=== PATIENT | male | born 2000 | race Two or more races ===

== ENCOUNTER 2025-09-08 09:40 | Emergency (ER) | payer MEDICAID, SELFPAY ==
[2025-09-08 09:41] VITALS: BMI 29.8
[2025-09-08 09:51] VITALS: BP 122/79; PULSE 64; RESP 18; TEMP 36.4; O2SAT 99
--- NOTE | 2025-09-08 09:57 | XR_ITS ---
Examination: CT brain head without contrast. 2-D sagittal coronal reconstructions Date and time of exam: September 08, 2025, 1059 hours INDICATIONS: Blurred vision dizziness episodes onset today CTDI: vol (mGy): 48.6 DLP: (mGycm): 1002 Technique: Multiple CT axial sections of the brain have been obtained, 5 mm slice thickness. Contrast has not been administered. 2-D sagittal, coronal reconstructions have been obtained Low dose protocols were performed. One or more of the following dose reduction techniques were used; automated exposure control, adjustment of the mA and/or KV according to patient size, use of iterative reconstruction technique. Findings: No significant ventricular enlargement. Intra-axial or extra-axial hemorrhage density is not seen. No mass effect or midline shift Basal cisterns are not remarkable. Fourth ventricle is midline. Cranial vault intact. Impression: Negative for acute hemorrhage, mass effect or midline shift As clinically warranted, brain MRI follow-up would best assess for demyelinating disease, acute ischemic change
--- NOTE | 2025-09-08 09:58 | PD.EDPSYCH ---
ED Psych RME/HPI General Chief Complaint: Syncope / Near Syncope Stated Complaint: SYNCOPAL EPISODE Time Seen by Provider: 09/08/25 09:47 Source: patient Arrival date/time: 09/08/25 09:40 25-year-old male with no established psychiatric history presents to the emergency room with a chief complaint stating that when he drinks a lot of sugar he rushes to his head causing him to have near syncopal episodes. Patient is also states he sees a lot of fiber and colors and shadows. Patient denies any homicidal or suicidal ideation Mode of arrival: ambulatory Limitations: no limitations Related Data Allergies Allergy/AdvReac Type Severity Reaction Status Date / Time No Known Allergies Allergy Verified 09/08/25 09:44 Review of Systems Review of Systems Systems Reviewed: All systems reviewed, normal except as documented Constitutional Constitutional: Reports system reviewed and no additional complaints, except as documented, Denies fatigue, Denies fever(s), Denies headache(s) and Denies weakness Eyes Eyes: Reports system reviewed and no additional complaints, except as documented, Denies blurry vision and Denies change in vision ENT Ears, Nose, Mouth, and Throat: Reports system reviewed and no additional complaints, except as documented, Denies otalgia, Denies headache(s), Denies nasal congestion, Denies throat swelling and Denies vertigo Cardiovascular Cardiovascular: Reports system reviewed and no additional complaints, except as documented, Denies chest pain, Denies dyspnea and Denies dyspnea on exertion Respiratory Respiratory: Reports system reviewed and no additional complaints, except as documented, Denies chest congestion, Denies cough, Denies dyspnea, Denies dyspnea on exertion and Denies wheezing Gastrointestinal Gastrointestinal: Reports system reviewed and no additional complaints, except as documented, Denies abdominal pain, Denies cramping, Denies nausea and Denies vomiting Genitourinary Genitourinary: Reports system reviewed and no additional complaints, except as documented, Denies change in libido, Denies dysuria and Denies hematuria Musculoskeletal Musculoskeletal: Reports system reviewed and no additional complaints, except as documented and Denies back pain Integumentary/Breasts Skin/Breast: Reports system reviewed and no additional complaints, except as documented and Denies wounds Neurologic Neurologic: Reports system reviewed and no additional complaints, except as documented, Denies behavioral changes, Denies confusion, Denies headache(s), Denies lack of coordination, Denies vertigo and Denies weakness Psychiatric Psychiatric: Reports system reviewed and no additional complaints, except as documented, Denies abnormal sleep pattern, Denies anhedonia, Denies anxiety, Denies auditory hallucinations, Denies behavioral changes, Denies change in appetite, Denies change in libido, Denies confusion, Denies depression, Reports difficulty concentrating, Reports hallucinations, Denies homicidal ideation, Denies hopelessness, Denies irritability, Reports mood swings, Denies panic attacks, Denies paranoia, Denies suicidal ideation, Denies tactile hallucinations and Reports visual hallucinations Endocrine Endocrine: Reports system reviewed and no additional complaints, except as documented, Denies change in libido and Denies fatigue Hematologic/Lymphatic Hematologic/Lymphatic: Reports system reviewed and no additional complaints, except as documented and Denies lymphadenopathy Allergic/Immunologic Allergic/Immunologic: Reports system reviewed and no additional complaints, except as documented, Denies throat swelling, Denies urticaria and Denies wheezing ED Exam General Limitations: Present no limitations General appearance: Present alert and in no apparent distress Head Head exam: Present atraumatic Eye Eye exam: Present normal appearance, PERRL and EOMI ENT ENT exam: Present normal exam, normal oropharynx and mucous membranes moist Neck Neck exam: Present normal inspection, full ROM and trachea midline Chest Chest inspection: Present normal inspection and symmetric chest wall rise Respiratory Respiratory exam: Present normal lung sounds bilaterally Cardiovascular Cardiovascular exam: Present regular rate, normal rhythm and normal heart sounds Abdominal Exam Abdominal exam: Present soft and normal bowel sounds Extremities Exam Extremities exam: Present normal inspection and full ROM Back Exam Back exam: Present normal inspection and full ROM Neurological Exam Neurological exam: Present alert, oriented X3 and CN II-XII intact Psychiatric Psychiatric exam: Present normal affect and normal mood; Absent depressed, agitated, anxious, manic, homicidal ideation or suicidal ideation Expanded Psychiatric Exam Expanded psych exam: Present poor eye contact and visual hallucinations; Absent pressured speech, responds to int stimuli, psychomotor agitation, delusional, paranoid, catatonic, mute, perseverating, euphoric, restlessness, flight of ideas, loose associations, uncooperative, refuses to answer, auditory hallucinations or confabulating Skin Skin exam: Present warm, dry, intact and normal color Course Quality Measures none Orders Category Date Time Status CT head/brain wo con Stat Exams 09/08/25 09:57 Completed CBC Stat Lab 09/08/25 10:10 Completed CMP [Comprehensive Metabolic Panel] Stat Lab 09/08/25 10:10 Completed Drug Screen,Urine Stat Lab 09/08/25 10:00 Completed Free T4 (Free Thyroxine) Stat Lab 09/08/25 10:10 Completed TSH [Thyroid Stimulating Hormone] Stat Lab 09/08/25 10:10 Completed UA, C/S IF [Urinalysis, C/S if Indicated] Stat Lab 09/08/25 10:00 Completed Vital Signs Vital signs: Vital Signs Temperature 97.5 F 09/08/25 09:51 Pulse Rate 64 09/08/25 09:51 Respiratory Rate 18 09/08/25 09:51 Blood Pressure 122/79 09/08/25 09:51 Pulse Oximetry (%) 99 09/08/25 09:51 Oxygen Delivery Method Room Air 09/08/25 09:51 O2 saturation 99% within normal limits Psych MDM Narrative MDM Narrative:: 25-year-old male with no established psychiatric history presents to the emergency room with a chief complaint stating that when he drinks a lot of sugar he rushes to his head causing him to have near syncopal episodes. Patient is also states he sees a lot of fiber and colors and shadows. Patient denies any homicidal or suicidal ideation. Patient is hemodynamically stable and in no apparent distress Physical examination shows normal neurological exam. The patient is a GCS of 15 he is alert and oriented x 3. Patient states he has no psychiatric history or any history of any schizophrenia. Patient states he is seeing shadows as well as bright lights at times. Patient also states that when he drinks a lot of sugar it goes up to his head causing him to feel like he is going to pass out. Patient has never been to the emergency room. He is nontoxic-appearing. Patient denies any suicidal or homicidal ideation. Patient states these hallucinations that he is seeing are not speaking to him. A CT of his head and brain was negative for any acute findings. CBC CMP urinalysis and urine drug screen were within all normal limits. I spoke to our social services director Veronica who evaluated the patient and the recommendations were as as she needs a psychiatric evaluation. She gave him the resources and got him an appointment scheduled so he could see a psychiatrist for further evaluation and management as well as if he needs to start medication. Patient was discharged and educated to follow-up with primary care provider in the next 24 to 48 hours and return to the emergency room for any evidence of worsening signs or symptoms Patient data External records reviewed:: [facility] previous records Clinical information provided by:: patient Social determinants that could affect healthcare access:: none Patient has the following chronic illnesses:: No chronic illness How is presenting disease/condition affected by chronic disease/condition?: no chronic disease Evaluation data The following diagnostics were reviewed and interpreted by me:: lab results and radiology exam(s) Lab and/or radiology exams considered but not ordered:: Labs and radiology exams considered and ordered Interpretation Summary: CT head and brain-Findings: No significant ventricular enlargement. Intra-axial or extra-axial hemorrhage density is not seen. No mass effect or midline shift Basal cisterns are not remarkable. Fourth ventricle is midline. Cranial vault intact. Impression: Negative for acute hemorrhage, mass effect or midline shift As clinically warranted, brain MRI follow-up would best assess for demyelinating disease, acute ischemic change Medications / Prescriptions Medications or Prescriptions considered but not ordered:: No medication given Medication administrations:: No medication given Consultations Consultation(s) initiated? (list below): No Diagnosis Psych Differential Diagnosis: acute psychosis, chronic schizophrenia, bipolar disorder, drug-induced psychotic disorder, acute anxiety and other (Psychiatric care) Most likely diagnosis given after review of the tests above:: Psychiatric care Admission Indicated Admission indicated?: not indicated Admission Request Was there a request for admission?: No Disposition Plan Disposition Plan: Discharge Discharge Attestation Discharge Attestation: The patient and all family members were given an opportunity to ask questions and understood the discharge instructions. Discharge instructions specifically effects, indications for sooner follow up or return to the emergency department, and the expected course of current diagnosis. Patient condition: Stable Discharge Plan Plan Patient Disposition: HOME (Self Care) Discharge Disposition comment: Stable Prescriptions/Referrals Referrals: No Primary/Family,Physician [Primary Care Provider] - In 1 week Problem List Clinical Impression: Psychiatric care, Hallucinations, visual Patient/Caregiver Discharge Instructions Additional Instructions: Please follow-up with your primary care provider in the next [address] of your head and brain was negative for any acute findings. Your blood work urinalysis was all within normal limits. I spoke to our social services director who gave you resources for any psychiatric care you may need For any evidence of worsening signs or symptoms return to the emergency room immediately Print Language: Japanese Stand Alone Forms: [employer] Work/School Release, Patient Portal Info Letter PA/INDIAN BLANKET WEAVER Supervising Physician PA/INDIAN BLANKET WEAVER Supervising Physician: Dr. Cantu
[2025-09-08 10:17] LABS: Collection Type, Urine Clean Catch; RBC,Urine 0 /hpf (0-3)
[2025-09-08 10:21] LABS: Basophils # (Auto) 0.0 Thou/mm3 (0.0-0.2); Basophils % (Auto) 1 % (0-2.5); Eosinophils # (Auto) 0.1 Thou/mm3 (0.0-0.5); Eosinophils % (Auto) 3 % (0-10); Hematocrit 49.5 % (41.0-53.0); Hemoglobin 17.1 g/dL (13.5-16.0); Immature Granulocytes Auto 0.01 Thou/mm3 (0.00-0.00); Lymphocytes # (Auto) 1.7 Thou/mm3 (1.0-4.8); Lymphocytes % (Auto) 41 % (10-50); Mean Corpuscular HGB Conc 34.5 g/dl (31.0-37.0); Mean Corpuscular Hemoglobin 29.7 pg (25.0-35.0); Mean Corpuscular Volume 86 fL (80-100); Monocytes # (Auto) 0.3 Thou/mm3 (0.0-0.8); Monocytes % (Auto) 8 % (0-12); Neutrophils # (Auto) 2.0 Thou/mm3 (1.8-7.7); Neutrophils % (Auto) 48 % (37-80); Nucleated Red Blood Cell # 0.00 Thou/mm3 (0.00-0.00); Nucleated Red Blood Cell % 0 /100 WBC (0); Platelet Count 297 Thou/mm3 (140-440); RDW Standard Deviation 37.5 fL (35.1-43.9); Red Blood Count 5.75 Miln/mm3 (4.50-5.90); White Blood Count 4.3 Thou/mm3 (3.8-10.6)
[2025-09-08 10:38] LABS: Bilirubin,Urine Negative (Negative); Blood,Urine Negative (Negative); Clarity,Urine Clear (Clear/Hazy); Color,Urine Lt-Yellow (Lt Yel-Yel); Culture Indicated,Urine Not Indicated; Glucose, Urine Negative (Negative); Ketones,Urine Negative (Negative); Leukocyte Esterase,Urine Negative (Negative); Nitrite,Urine Negative (Negative); PH,Urine 6.5 (5.0-7.0); Protein,Urine Negative (Neg - Trace); Specific Gravity,Urine 1.018 (1.001-1.035); Squamous Epithelial Cell,Urine < 1 /hpf (0-5); Urobilinogen,Urine Negative mg/dL (0.0-1.0); WBC,Urine 1 /hpf (0-5)
[2025-09-08 10:41] LABS: Alanine Aminotransferase 30 U/L (10-49); Albumin, Serum 5.4 gm/dL (3.5-5.0); Albumin/Globulin Ratio 2.6 (1.2-2.2); Alkaline Phosphatase 102 U/L (46-116); Anion Gap 8 (7-16); Aspartate Amino Transferase 29 U/L (0-34); BUN/Creatinine Ratio 14 Ratio (12-20); Bilirubin,Total 1.2 mg/dL (0.3-1.2); Blood Urea Nitrogen 13 mg/dL (9-23); Calcium 10.1 mg/dL (8.3-10.6); Calcium (Corrected) 10.1 mg/dL (8.5-10.1); Carbon Dioxide 31.0 mMol/L (20.0-31.0); Chloride 102 mMol/L (98-107); Creatinine (Component) 0.9 mg/dL (0.6-1.3); Estimated Creatinine Clearance 140.3 mL/min (>60); Free T4 (Free Thyroxine) 1.45 ng/dL (0.89-1.76); Globulin 2.1 gm/dL (2.3-3.5); Glucose 99 mg/dL (74-106); Osmolality,Calculated 281 (275-295); Potassium 4.2 mMol/L (3.4-5.1); Sodium 141 mMol/L (136-145); Thyroid Stimulating Hormone 1.29 uIU/mL (0.55-4.78); Total Protein 7.5 gm/dL (5.7-8.2); eGFR > 60 See Note
[2025-09-08 10:49] LABS: Sperm,Urine Present
[2025-09-08 10:57] LABS: Amphetamine/Methamp Scrn,U Negative (Negative); Barbiturate Screen,Urine Negative (Negative); Benzodiazepines Screen,Urine Negative (Negative); Benzoylecgonine Screen, Ur Negative (Negative); Fentanyl Screen,Urine Negative (Negative); Opiate Screen,Urine Negative (Negative); THC Screen,Urine Negative (Negative)
--- NOTE | 2025-09-08 11:56 | PC.CC ---
1145-ASW met with pt as pt is requesting community resources to mental health providers. Since pt is from [place], ASW attempted to schedule an appointment to [facility] in [place] but the cashier receptionist stated they would call back. ASW will call back by the end of the day if the clinic has not returned the call to establish an appointment for the pt.
--- NOTE | 2025-09-09 09:34 | PC.CC ---
[id number] called [facility] in [place] as an attempt to schedule a MH appointment for this pt. However, per the editorial clerk, our ER provider would have needed to create a referral to MH services for this provider as his d/c plan. At this moment, pt would need to call [facility] himself and schedule an MH appointment for himself. ASW contacted pt and spoke with his mother and advised of the instruction from [facility]. The mother stated she understood and would take the pt to the clinic to schedule the appointment.
== END 2025-09-08 12:15 | disposition home or self-care (01) ==
PROVIDERS: Nurse Practitioner Family; Emergency Provider Emergency Medicine
DX: R44.1 Visual hallucinations (principal)
CPT/HCPCS: 36415; 70450; 80053; 80307; 81001; 84439; 84443; 85025; 99283

== ENCOUNTER 2025-09-08 12:36 | Emergency (ER) | payer MEDICAID, SELFPAY ==
[2025-09-08 12:36] VITALS: BMI 29.8
[2025-09-08 13:03] VITALS: BP 134/89; PULSE 60; RESP 16; TEMP 36.7; O2SAT 99
--- NOTE | 2025-09-08 13:05 | XR_ITS ---
Examination: CT abdomen and pelvis without contrast. Coronal 3-D reconstructions. Sagittal 2-D reconstructions. Date and time of exam: September 08, 2025: 1514 hours INDICATIONS: Generalized abdominal pain beginning 2 days ago CTDI: vol (mGy): 4 DLP: (mGycm): 221 Technique: Axial images of the abdomen have been obtained, 3 mm slice thickness Intravenous contrast material has not been administered. Low dose protocols were performed. One or more of the following dose reduction techniques were used; automated exposure control, adjustment of the mA and/or KV according to patient size, use of iterative reconstruction technique. Findings: No visualized liver or splenic lesion No gallstones No pancreatic or adrenal mass No renal or ureteral calculi, no hydronephrosis Aorta normal size No bowel obstruction Normal appendix No diverticulitis Normal prostate Normal urinary bladder The osseous structures are intact IMPRESSION: No renal or ureteral calculi, no hydronephrosis Normal appendix No bowel obstruction diverticulitis or free air
[2025-09-08 13:26] LABS: Collection Type, Urine Clean Catch; Squamous Epithelial Cell,Urine 0 /hpf (0-5)
[2025-09-08 13:40] LABS: Basophils # (Auto) 0.0 Thou/mm3 (0.0-0.2); Basophils % (Auto) 1 % (0-2.5); Eosinophils # (Auto) 0.1 Thou/mm3 (0.0-0.5); Eosinophils % (Auto) 1 % (0-10); Hematocrit 48.2 % (41.0-53.0); Hemoglobin 16.8 g/dL (13.5-16.0); Immature Granulocytes Auto 0.01 Thou/mm3 (0.00-0.00); Lymphocytes # (Auto) 1.4 Thou/mm3 (1.0-4.8); Lymphocytes % (Auto) 32 % (10-50); Mean Corpuscular HGB Conc 34.9 g/dl (31.0-37.0); Mean Corpuscular Hemoglobin 29.4 pg (25.0-35.0); Mean Corpuscular Volume 84 fL (80-100); Monocytes # (Auto) 0.3 Thou/mm3 (0.0-0.8); Monocytes % (Auto) 7 % (0-12); Neutrophils # (Auto) 2.5 Thou/mm3 (1.8-7.7); Neutrophils % (Auto) 59 % (37-80); Nucleated Red Blood Cell # 0.00 Thou/mm3 (0.00-0.00); Nucleated Red Blood Cell % 0 /100 WBC (0); Platelet Count 292 Thou/mm3 (140-440); RDW Standard Deviation 36.1 fL (35.1-43.9); Red Blood Count 5.71 Miln/mm3 (4.50-5.90); White Blood Count 4.2 Thou/mm3 (3.8-10.6)
[2025-09-08 13:42] LABS: Bilirubin,Urine Negative (Negative); Blood,Urine Negative (Negative); Clarity,Urine Clear (Clear/Hazy); Color,Urine Colorless (Lt Yel-Yel); Glucose, Urine Negative (Negative); Ketones,Urine Negative (Negative); Leukocyte Esterase,Urine Negative (Negative); Nitrite,Urine Negative (Negative); PH,Urine 7.0 (5.0-7.0); Protein,Urine Negative (Neg - Trace); RBC,Urine 1 /hpf (0-3); Specific Gravity,Urine 1.012 (1.001-1.035); Urobilinogen,Urine Negative mg/dL (0.0-1.0); WBC,Urine 2 /hpf (0-5)
[2025-09-08 14:02] LABS: Alanine Aminotransferase 27 U/L (10-49); Albumin, Serum 5.3 gm/dL (3.5-5.0); Albumin/Globulin Ratio 2.7 (1.2-2.2); Alkaline Phosphatase 97 U/L (46-116); Anion Gap 7 (7-16); Aspartate Amino Transferase 29 U/L (0-34); BUN/Creatinine Ratio 11 Ratio (12-20); Bilirubin,Total 1.2 mg/dL (0.3-1.2); Blood Urea Nitrogen 10 mg/dL (9-23); Calcium 10.2 mg/dL (8.3-10.6); Calcium (Corrected) 10.2 mg/dL (8.5-10.1); Carbon Dioxide 29.7 mMol/L (20.0-31.0); Chloride 103 mMol/L (98-107); Creatinine (Component) 0.9 mg/dL (0.6-1.3); Estimated Creatinine Clearance 140.3 mL/min (>60); Globulin 2.0 gm/dL (2.3-3.5); Glucose 95 mg/dL (74-106); Lipase 47 U/L (12-53); Osmolality,Calculated 278 (275-295); Potassium 4.1 mMol/L (3.4-5.1); Sodium 140 mMol/L (136-145); Total Protein 7.3 gm/dL (5.7-8.2); eGFR > 60 See Note
--- NOTE | 2025-09-08 15:41 | PD.EDABDPN ---
ED Abdominal Pain RME/HPI General Chief Complaint: Abdominal Pain Stated complaint: UNABLE TO EAT SEEN EARLIER Time seen by provider: 09/08/25 12:43 Arrival date/time: 09/08/25 12:36 This is a case of 25-year-old male with no medical history came in in the emergency room due to abdominal pain burning in character mainly on the epigastric area with nausea vomiting today patient was seen here earlier in the morning complaint was headache and some hallucination were a thorough workup was performed and CT scan of head were everything were normal at the time of exam patient headache was resolved patient denies any hallucination any suicidal or homicidal ideation Limitations: no limitations Related Data Previous Rx's ?Medication ?Instructions ?Recorded dicyclomine 20 mg tablet 20 mg PO TID PRN abdominal pain 09/08/25 #20 tabs famotidine 20 mg tablet (Pepcid) 20 mg PO BID #60 tabs 09/08/25 ondansetron 4 mg disintegrating 4 mg PO Q8H #20 tabs 09/08/25 tablet Allergies Allergy/AdvReac Type Severity Reaction Status Date / Time No Known Allergies Allergy Verified 09/08/25 12:40 Review of Systems Review of Systems Systems Reviewed: All systems reviewed, normal except as documented Constitutional Constitutional: Reports system reviewed and no additional complaints, except as documented and Reports as per HPI Cardiovascular Cardiovascular: Reports system reviewed and no additional complaints, except as documented and Reports as per HPI Respiratory Respiratory: Reports system reviewed and no additional complaints, except as documented and Reports as per HPI Gastrointestinal Gastrointestinal: Reports system reviewed and no additional complaints, except as documented and Reports as per HPI Musculoskeletal Musculoskeletal: Reports system reviewed and no additional complaints, except as documented and Reports as per HPI Neurologic Neurologic: Reports system reviewed and no additional complaints, except as documented and Reports as per HPI ED Exam General Limitations: Present no limitations General appearance: Present alert, in no apparent distress and other (Patient is awake alert oriented not in distress nontoxic looking well-hydrated well-nourished) Head Head exam: Present atraumatic, normocephalic and normal inspection Eye Eye exam: Present normal appearance, PERRL and EOMI ENT ENT exam: Present normal exam, normal oropharynx and mucous membranes moist Neck Neck exam: Present normal inspection, full ROM and trachea midline; Absent tenderness, meningismus, lymphadenopathy or thyromegaly Chest Chest inspection: Present normal inspection and symmetric chest wall rise; Absent tenderness Respiratory Respiratory exam: Present normal lung sounds bilaterally; Absent respiratory distress, wheezes, stridor, accessory muscle use or prolonged expiratory phase Cardiovascular Cardiovascular exam: Present regular rate, normal rhythm and normal heart sounds; Absent bradycardia, tachycardia, irregular rhythm, systolic murmur or diastolic murmur Abdominal Exam Abdominal exam: Present soft, tenderness and normal bowel sounds; Absent distention, guarding, rebound, rigidity, diminished bowel sounds, hyperactive bowel sounds, hypoactive bowel sounds, organomegaly, psoas sign, heel tap sign, Pardo's sign, Rovsing's sign or tenderness at McBurney's Point Extremities Exam Extremities exam: Present normal inspection and full ROM Back Exam Back exam: Present normal inspection and full ROM Neurological Exam Neurological exam: Present alert, oriented X3, CN II-XII intact, normal gait, reflexes normal and other (Awake alert oriented x 4 no focal deficit GCS 15/15 steady gait); Absent motor sensory deficit Psychiatric Psychiatric exam: Present normal affect, normal mood and other (No hallucination no delusion); Absent depressed, agitated, anxious, homicidal ideation or suicidal ideation Skin Skin exam: Present warm, dry, intact, normal color and other (Excellent skin turgor) Course Quality Measures none Orders Category Date Time Status CT abdomen pelvis wo con Stat Exams 09/08/25 13:05 Completed CBC Stat Lab 09/08/25 13:20 Completed Comprehensive Metabolic Panel Stat Lab 09/08/25 13:20 Completed Lipase Stat Lab 09/08/25 13:20 Completed Urinalysis Stat Lab 09/08/25 13:20 Completed Dicyclomine [Bentyl] Med 09/08/25 15:37 Discontinued 10 mg PO X1 ONE Ondansetron Odt [Zofran Odt] Med 09/08/25 15:37 Discontinued 4 mg PO X1 ONE Vital Signs Vital signs: Vital Signs Temperature 98.0 F 09/08/25 13:03 Pulse Rate 60 09/08/25 13:03 Respiratory Rate 16 09/08/25 13:03 Blood Pressure 134/89 H 09/08/25 13:03 Pulse Oximetry (%) 99 09/08/25 13:03 Oxygen Delivery Method Room Air 09/08/25 13:03 Patient saturation is 99% in room air Abdominal Pain MDM MDM Narrative MDM Narrative:: This is a case of 25-year-old male with no medical history came in in the emergency room due to abdominal pain burning in character mainly on the epigastric area with nausea vomiting today patient was seen here earlier in the morning complaint was headache and some hallucination were a thorough workup was performed and CT scan of head were everything were normal at the time of exam patient headache was resolved patient denies any hallucination any suicidal or homicidal ideation physical examination patient is awake alert oriented not in distress nontoxic looking well-hydrated well-nourished vital signs stable BP stable not tachycardic not tachypneic afebrile and nonhypoxic neurological exam is normal awake alert oriented x 4 no focal deficit GCS 15/15 steady gait mental status patient have good eye contact calm no anxiety no depression noted patient has no suicidal or homicidal ideation no hallucination no delusion noted patient abdominal exam is benign nonsurgical no guarding no rebound no rigidity mild tenderness in the epigastric area negative psoas negative straight or negative Rovsing's negative Pardo sign negative McBurney sign no CVA tenderness blood test showed no leukocytosis no anemia kidney and liver function is normal no electrolyte imbalance lipase is normal urinalysis normal CT scan is unremarkable normal exam at the time of exam patient abdominal pain is possible due to gastritis or GERD patient was given a Bentyl and Zofran which improved and resolve the pain patient was discharged with Pepcid and Bentyl and Zofran and he will follow-up with PCP for reevaluation and for any worsening symptoms or any emergent concern return precaution to the ER is advised Patient was discharged with comfortable condition walking with stable gait. Patient verbalized no further complains explained diagnosis and answered patient question. Patient is comfortable with the proposed management plan including the need to follow up with his/her primary care physician and any specialist if applicable Discussed patient for any urgent condition or worsening sx, He/She needed to go to emergency room immediately or call 911. Patient acknowledge the responsibility to follow up as instructed and to monitor her/his symptoms. For any persistence of the symptoms for more than 3-5 days return precaution advised. Discussed the result of the test and was given printed discharge instruction Patient data External records reviewed:: [facility] previous records Clinical information provided by:: patient Social determinants that could affect healthcare access:: none Patient has the following chronic illnesses:: None How is presenting disease/condition affected by chronic disease/condition?: no chronic disease Evaluation data The following diagnostics were reviewed and interpreted by me:: lab results and radiology exam(s) Lab and/or radiology exams considered but not ordered:: Reviewed Interpretation Summary: Reviewed Medications / Prescriptions Medications or Prescriptions considered but not ordered:: Given Medication administrations:: Medication Administration History Discontinued Medications Dicyclomine HCl (Dicyclomine 10 Mg Capsule) 10 mg PO X1 ONE Stop: 09/08/25 15:38 Last Admin: 09/08/25 16:10 Dose: 10 mg Documented By: ESMER Ondansetron HCl (Ondansetron Odt 4 Mg Tabrap) 4 mg PO X1 ONE; Protocol Stop: 09/08/25 15:38 Last Admin: 09/08/25 16:10 Dose: 4 mg Documented By: ESMER Given Consultations Consultation(s) initiated? (list below): No Diagnosis Differential diagnosis abdominal pain: abdominal pain, acute appendicitis, calculus of kidney, constipation, diverticulitis, gastroenteritis, pancreatitis and other (Gastritis) Most likely diagnosis given after review of the tests above:: Gastritis Admission Indicated Admission indicated?: not indicated Explain why admission is indicated or not indicated:: Not indicated Admission Request Was there a request for admission?: No Admission Attestation Admission request attestation: Not indicated Disposition Plan Disposition Plan: Discharge Discharge Attestation Discharge Attestation: The patient and all family members were given an opportunity to ask questions and understood the discharge instructions. Discharge instructions specifically effects, indications for sooner follow up or return to the emergency department, and the expected course of current diagnosis. Patient condition: Stable Discharge Plan Plan Patient Disposition: HOME (Self Care) Patient condition on transfer: Stable Prescriptions/Referrals Prescriptions/Med Rec: New dicyclomine 20 mg tablet 20 mg PO TID PRN (Reason: abdominal pain) Qty: 20 0RF ondansetron 4 mg tablet,disintegrating 4 mg PO Q8H Qty: 20 0RF famotidine [Pepcid] 20 mg tablet 20 mg PO BID Qty: 60 0RF Referrals: No Primary/Family,Physician [Primary Care Provider] - In 1 week Problem List Clinical Impression: Abdominal pain, Gastritis Patient/Caregiver Discharge Instructions Education Materials: Abdominal Pain, ED Gastritis (Adult) Additional Instructions: Follow-up with your primary care physician in 2 days for reevaluation for any worsening symptoms persistent of the symptoms or any emergent concern call 911 or go to the nearest emergency room take your medication as directed finish the course of antibiotic increase water intake keep hydrated avoid skipping of meals avoid fat fried high cholesterol food avoid alcohol soda coffee avoid spicy food follow-up with your primary care physician to be referred to fence making machine operator for further evaluation and treatment gastritis Print Language: Croatian Stand Alone Forms: [employer] Award Info., Patient Portal Info Letter PA/SENIOR MANUFACTURING SUPERVISOR Supervising Physician PA/SENIOR MANUFACTURING SUPERVISOR Supervising Physician: Dr. Cantu
[2025-09-08] MEDS: ONDANSETRON ODT 4 MG TABRAP PO (16:10)
[2025-09-08] MEDS: DICYCLOMINE 10 MG CAPSULE PO (16:10)
== END 2025-09-08 16:14 | disposition home or self-care (01) ==
PROVIDERS: Nurse Practitioner Family; Emergency Provider Emergency Medicine
DX: K29.70 Gastritis, unspecified, without bleeding (principal)
CPT/HCPCS: 36415; 74176; 80053; 81001; 83690; 85025; 99283; Q0162; A9270